=== PATIENT | female | born 1970 | race African-American/Black ===

== ENCOUNTER 2018-08-31 18:09 | Emergency (ER) | payer OTHER, SELFPAY ==
--- NOTE | 2018-08-31 19:52 | RAD ---
LEFT KNEE: 08/31/18 Four views. HISTORY: Injury. Minimal spurring from the tibial spine. No fracture or acute abnormality. No joint effusion. IMPRESSION: No acute abnormality. POS: OFF
== END 2018-08-31 19:26 | disposition home or self-care (01) ==
LOC: NAV ERS 18:09
DX: S23.41XA Sprain of ribs, initial encounter (principal); M25.562 Pain in left knee; V43.52XA Car driver injured in collision with other type car in traffic accident, initial encounter